=== PATIENT | male | born 1955 | race Caucasian/White ===

== ENCOUNTER 2018-08-05 15:30 | Emergency (ER) | payer BC ==
[2018-08-05] MEDS ORDERED: Sodium Chloride 0.9% 1,000 ML IV ONE ×2 (16:08→20:16)
[2018-08-05] MEDS ORDERED: Sodium Chloride 0.9% 10 ML Syringe FLUSH PRN (16:08)
[2018-08-05 16:47] LABS: CHLORIDE,CL 97 mmol/L (101-111); SODIUM,NA 133 mmol/L (135-145)
[2018-08-05 16:52] LABS: ANION GAP 13.2
[2018-08-05] MEDS ORDERED: Iopamidol 612 MG/ML 75 ML Bottle IVPUSH ONE (17:10)
[2018-08-05] MEDS ORDERED: Sodium Chloride 0.9% with KCl 1,000 ML IV SCH (17:15)
--- NOTE | 2018-08-05 18:24 | EDM.PDOC ---
<Seda Nguyen - Last Filed: 08/05/18 19:04> ED HPI GENERAL MEDICAL PROBLEM - General Chief Complaint: Abdominal Pain Stated Complaint: AMBULANCE Time Seen by Provider: 08/05/18 16:00 Source of Information: Reports: Patient, EMS, EMS Notes Reviewed, RN, RN Notes Reviewed History Limitations: Reports: No Limitations - History of Present Illness INITIAL COMMENTS - FREE TEXT/NARRATIVE: Pt to Er per [facility] with c/o abdominal pain, dizziness, and multiple falls at home. Patient states he has a hx of colon CA that was surgically removed, and then completed 12 rounds of chemo which he recently completed. Patient states he lives with his 88 yo mother. He states he has been very weak and has fallen multiple times. Patient states he has had diarrhea for about 3 weeks. Denies fever, chills, N/V. C/o of left knee pain and left hip pain after a recent fall. Onset: Gradual Abdominal Pain Score (Numeric/FACES): 7 - Related Data Allergies Allergy/AdvReac Type Severity Reaction Status Date / Time No Known Allergies Allergy Verified 08/05/18 15:41 Home Meds: Home Meds Ondansetron [Zofran] 8 mg PO Q8H PRN 04/01/18 [History] Prochlorperazine [Compazine] 10 mg PO Q6H PRN 04/01/18 [History] Potassium Chloride 20 meq PO DAILY 06/30/18 [History] Past Medical History HEENT History: Reports: None Cardiovascular History: Reports: None Respiratory History: Reports: None Gastrointestinal History: Reports: None Genitourinary History: Reports: None Musculoskeletal History: Reports: Arthritis Neurological History: Reports: None Psychiatric History: Reports: None Endocrine/Metabolic History: Reports: None Hematologic History: Reports: None Immunologic History: Reports: None Oncologic (Cancer) History: Reports: Colon Dermatologic History: Reports: None - Infectious Disease History Infectious Disease History: Reports: None - Past Surgical History HEENT Surgical History: Reports: None Cardiovascular Surgical History: Reports: None Respiratory Surgical History: Reports: None GI Surgical History: Reports: Colon, Colonoscopy Male Surgical History: Reports: None Endocrine Surgical History: Reports: None Neurological Surgical History: Reports: None Musculoskeletal Surgical History: Reports: None Oncologic Surgical History: Reports: Other (See Below) Other Oncologic Surgeries/Procedures: colon resection and lymph node removal Social & Family History - Family History Family Medical History: Noncontributory - Tobacco Use Smoking Status *Q: Never Smoker Second Hand Smoke Exposure: No - Caffeine Use Caffeine Use: Reports: Coffee, Soda - Living Situation & Occupation Living situation: Reports: Single, with Family Occupation: Disabled ED ROS GENERAL - Review of Systems Review Of Systems: ROS reveals no pertinent complaints other than HPI. ED EXAM, GI/ABD - Physical Exam Exam: See Below Exam Limited By: Physical Impairment General Appearance: Alert, WD/WN, Moderate Distress Eyes: Bilateral: Normal Appearance Ears: Normal External Exam, Hearing Grossly Normal Nose: Normal Inspection Throat/Mouth: Normal Inspection, Normal Voice, No Airway Compromise Head: Atraumatic, Normocephalic Neck: Normal Inspection, Supple, Non-Tender, Full Range of Motion Respiratory/Chest: No Respiratory Distress, Lungs Clear, Normal Breath Sounds, No Accessory Muscle Use, Chest Non-Tender Cardiovascular: Normal Peripheral Pulses, Regular Rate, Rhythm, No Edema, No Gallop, No JVD, No Murmur, No Rub GI/Abdominal Exam: Normal Bowel Sounds, Soft, Tender (unable to palpate due to severe tenderness. C/o pain with auscultation) (Male) Exam: Deferred Rectal (Males) Exam: Deferred Back Exam: Normal Inspection, Full Range of Motion Extremities: Limited Range of Motion, Other (wound/ulcer to proximal, dorsal thigh.) Neurological: Alert, Oriented Psychiatric: Depressed Mood, Tearful Skin Exam: Warm, Dry, Wound/Incision (proximal/dorsal thigh, under left buttock) Lymphatic: No Adenopathy Course - Vital Signs Last Recorded V/S: Last Vital Signs Temp 37.6 C 08/05/18 15:42 Pulse 90 08/05/18 15:42 Resp 16 08/05/18 15:42 BP 111/65 08/05/18 15:42 Pulse Ox 99 08/05/18 15:42 - Orders/Labs/Meds Orders: Active Orders 24 hr Category Date Time Status EKG Documentation Completion [RC] STAT Care 08/05/18 18:53 Active Peripheral IV Care [RC] . DIRECTED Care 08/05/18 16:08 Active CULTURE URINE [RM] Urgent Lab 08/05/18 16:45 Received Sodium Chloride 0.9% [Normal Saline] 1,000 ml Med 09/30/18 20:16 Ordered IV .BOLUS Sodium Chloride 0.9% [Saline Flush] Med 08/05/18 16:08 Active 10 ml FLUSH ASDIRECTED PRN Sodium Chloride 0.9% with KCl [Normal Saline with 40 Med 08/05/18 17:15 Active mEq KCl] 1,000 ml IV ASDIRECTED Peripheral IV Insertion Adult [OM.PC] Stat Oth 08/05/18 16:08 Ordered Medication Orders Potassium Chloride/Sodium Chloride (Normal Saline With 40 Meq Kcl) 1,000 mls @ 100 mls/hr IV ASDIRECTED REVA Last Admin: 08/05/18 17:40 Dose: 100 mls/hr Sodium Chloride (Normal Saline) 1,000 mls @ 999 mls/hr IV .BOLUS ONE Stop: 08/05/18 21:16 Sodium Chloride (Saline Flush) 10 ml FLUSH ASDIRECTED PRN PRN Reason: Keep Vein Open Last Admin: 08/05/18 17:02 Dose: 10 ml Labs: Laboratory Tests 08/05/18 08/05/18 08/05/18 Range/Units 16:19 16:19 16:19 WBC 2.4 L (5.0-10.0) 10^3/uL RBC 3.19 L (4.6-6.2) 10^6/uL Hgb 10.8 L (14.0-18.0) g/dL Hct 32.0 L (40.0-54.0) % MCV 100.3 H D (80-100) fL MCH 33.9 (27.0-34.0) pg MCHC 33.8 (33.0-35.0) g/dL Plt Count 117 L (150-450) 10^3/uL Neut % (Auto) 49.2 (42.2-75.2) % Lymph % (Auto) 21.1 (20.5-50.1) % Coleman % (Auto) 28.9 H (2-8) % Eos % (Auto) 0.4 L (1.0-3.0) % Baso % (Auto) 0.4 (0.0-1.0) % Add Manual Diff Yes Neutrophils % (Manual) 31 L (42-75) % Band Neutrophils % 19 % Lymphocytes % (Manual) 25 (20-50) % Monocytes % (Manual) 25 H (2-8) % Toxic Granulation 1+ slight Dohle Bodies 2+ moderate Platelet Estimate Decreased Macrocytosis 1+ slight Target Cells 1+ slight Tear Drop Cells 1+ slight Sodium 133 L (135-145) mmol/L Potassium 2.2 L* D (3.6-5.0) mmol/L Chloride 97 L (101-111) mmol/L Carbon Dioxide 25.0 (21.0-31.0) mmol/L Anion Gap 13.2 BUN 11 (7-18) mg/dL Creatinine 0.8 (0.6-1.3) mg/dL Est Cr Clr Drug Dosing 84.18 mL/min Estimated GFR (MDRD) > 60 BUN/Creatinine Ratio 13.75 Glucose 145 H (74-105) mg/dL Lactic Acid (0.5-2.2) mmol/L Calcium 7.8 L (8.4-10.2) mg/dl Total Bilirubin 0.9 (0.2-1.0) mg/dL AST 40 (10-42) IU/L ALT 17 (10-60) IU/L Alkaline Phosphatase 80 (42-121) IU/L Troponin I < 0.02 (0.00-0.02) ng/ml Total Protein 5.7 L (6.7-8.2) g/dl Albumin 2.9 L (3.2-5.5) g/dl Globulin 2.8 Albumin/Globulin Ratio 1.04 Urine Color (YELLOW) Urine Appearance (CLEAR) Urine pH (5.0-9.0) Ur Specific [place] (1.005-1.030) Urine Protein (NEGATIVE) Urine Glucose (UA) (NEGATIVE) Urine Ketones (NEGATIVE) Urine Occult Blood (NEGATIVE) Urine Nitrite (NEGATIVE) Urine Bilirubin (NEGATIVE) Urine Urobilinogen (0.2-1.0) mg/dL Ur Leukocyte Esterase (NEGATIVE) Urine RBC /HPF Urine WBC (0-5/HPF) /HPF Ur Epithelial Cells /HPF Amorphous Sediment (0/HPF) /HPF Urine Bacteria (0-FEW/HPF) /HPF 08/05/18 08/05/18 Range/Units 16:45 17:45 WBC (5.0-10.0) 10^3/uL RBC (4.6-6.2) 10^6/uL Hgb (14.0-18.0) g/dL Hct (40.0-54.0) % MCV (80-100) fL MCH (27.0-34.0) pg MCHC (33.0-35.0) g/dL Plt Count (150-450) 10^3/uL Neut % (Auto) (42.2-75.2) % Lymph % (Auto) (20.5-50.1) % Coleman % (Auto) (2-8) % Eos % (Auto) (1.0-3.0) % Baso % (Auto) (0.0-1.0) % Add Manual Diff Neutrophils % (Manual) (42-75) % Band Neutrophils % % Lymphocytes % (Manual) (20-50) % Monocytes % (Manual) (2-8) % Toxic Granulation Dohle Bodies Platelet Estimate Macrocytosis Target Cells Tear Drop Cells Sodium (135-145) mmol/L Potassium (3.6-5.0) mmol/L Chloride (101-111) mmol/L Carbon Dioxide (21.0-31.0) mmol/L Anion Gap BUN (7-18) mg/dL Creatinine (0.6-1.3) mg/dL Est Cr Clr Drug Dosing mL/min Estimated GFR (MDRD) BUN/Creatinine Ratio Glucose (74-105) mg/dL Lactic Acid 3.2 H (0.5-2.2) mmol/L Calcium (8.4-10.2) mg/dl Total Bilirubin (0.2-1.0) mg/dL AST (10-42) IU/L ALT (10-60) IU/L Alkaline Phosphatase (42-121) IU/L Troponin I (0.00-0.02) ng/ml Total Protein (6.7-8.2) g/dl Albumin (3.2-5.5) g/dl Globulin Albumin/Globulin Ratio Urine Color Roya (YELLOW) Urine Appearance Clear (CLEAR) Urine pH 6.0 (5.0-9.0) Ur Specific [place] >= 1.030 (1.005-1.030) Urine Protein 30 H (NEGATIVE) Urine Glucose (UA) 100 H (NEGATIVE) Urine Ketones Trace H (NEGATIVE) Urine Occult Blood Negative (NEGATIVE) Urine Nitrite Positive H (NEGATIVE) Urine Bilirubin Negative (NEGATIVE) Urine Urobilinogen 0.2 (0.2-1.0) mg/dL Ur Leukocyte Esterase Negative (NEGATIVE) Urine RBC 0-5 /HPF Urine WBC 0-5 (0-5/HPF) /HPF Ur Epithelial Cells Rare /HPF Amorphous Sediment Few (0/HPF) /HPF Urine Bacteria Few (0-FEW/HPF) /HPF Meds: Medications Generic Name Dose Route Start Last Admin Trade Name Freq PRN Reason Stop Dose Admin Potassium Chloride/Sodium Chloride 1,000 mls @ 100 mls/hr 08/05/18 17:15 17:40 Normal Saline With 40 Meq Kcl IV 100 mls/hr ASDIRECTED REVA Administration Sodium Chloride 1,000 mls @ 999 mls/hr 08/05/18 20:16 Normal Saline IV 08/05/18 21:16 .BOLUS ONE Sodium Chloride 10 ml 08/05/18 16:08 08/05/18 17:02 Saline Flush FLUSH 10 ml ASDIRECTED PRN Administration Keep Vein Open Discontinued Medications Generic Name Dose Route Start Last Admin Trade Name Freq PRN Reason Stop Dose Admin Sodium Chloride 1,000 mls @ 999 mls/hr 08/05/18 16:08 08/05/18 17:01 Normal Saline IV 08/05/18 17:08 999 mls/hr .BOLUS ONE Administration Piperacillin Sod/Tazobactam 100 mls @ 200 mls/hr 08/05/18 18:38 08/05/18 19: 17 Sod 3.375 gm/ Sodium Chloride IV 08/05/18 19:07 200 mls/hr ONETIME ONE Administration Iopamidol 75 ml 08/05/18 17:10 08/05/18 17:22 Isovue-300 (61%) IVPUSH 08/05/18 17:11 75 ml ONETIME ONE Administration Potassium Chloride 40 meq 08/05/18 20:17 Klor-Con 10 PO 08/05/18 20:18 ONETIME ONE - Radiology Interpretation Free Text/Narrative:: Abdomen/Pelvis CT with contrast: Head CT: IMPRESSION: No acute intracranial abnormality. Thank you for allowing us to participate in the care of your patient. Dictated and Authenticated by: Linda Orona MD 08/05/2018 7:05 PM Central Time ([place] & [place]) Left knee: IMPRESSION: Medial compartment osteoarthritis No fractures Thank you for allowing us to participate in the care of your patient. Dictated and Authenticated by: Ivana Rowell MD 08/05/2018 7:02 PM Central Time ([place] & [place]) See rad report Departure - Departure Disposition: DC/Tfer to [facility] Clinical Impression: Hypokalemia due to loss of potassium, Acute diarrhea - Discharge Information Forms: Interfacility Transfer EMTALA - My Orders Last 24 Hours: My Active Orders 08/05/18 20:16 Sodium Chloride 0.9% [Normal Saline] 1,000 ml IV .BOLUS - Assessment/Plan Last 24 Hours: My Active Orders 08/05/18 20:16 Sodium Chloride 0.9% [Normal Saline] 1,000 ml IV .BOLUS <Marco Chavez - Last Filed: 08/05/18 20:20> Course - Re-Assessments/Exams Free Text/Narrative Re-Assessment/Exam: 08/05/18 20:[address] Bower who kindly accepted pt. Departure - Departure Time of Disposition: 20:19 Condition: Fair
[2018-08-05] MEDS ORDERED: Piperacillin/Tazobactam 3.375 GM in Sodium Chloride 0.9% 100 ML IV ONE (18:38)
[2018-08-05] MEDS ORDERED: Potassium Chloride 10 MEQ Tab.ER PO ONE (20:17)
== END 2018-08-05 20:55 ==
LOC: DL.ED 15:30
DX: E87.6 Hypokalemia (principal); R19.7 Diarrhea, unspecified
CPT/HCPCS: 36415; 70450; 73562; 74177; 80053; 81001; 83605; 84484; 85025; 87086; 93005; 96365; 96366; 96367; 96368; 99285; A9270; J2543; J3480; J7030; J7050; Q9967